=== PATIENT | male | born 1995 | race Caucasian/White ===

== ENCOUNTER 2016-11-30 16:38 | Emergency (ER) | payer OTHER ==
[~2016-11-30] VITALS: Ht 182.9 cm; Wt 84.0 kg
[2016-11-30 16:40] VITALS: BP 128/83; PULSE 95; RESP 14; TEMP 99.1; O2SAT 100
--- NOTE | 2016-11-30 17:56 | PD ---
HPI Chief Complaint: Laceration/Skin Injury Time Seen by Provider: 17:45 Travel History International Travel<30 days: No Contact w/Intl Traveler<30days: No Traveled to known affect area: No History of Present Illness HPI 21-year-old male presents to the emergency room for evaluation of laceration to his right hayward that occurred just prior to arrival. Patient was cutting down a tree with a hatchet when he missed and struck his right leg. Patient states it tonight and cut his pants. He applied pressure and came to the emergency room. Denies chronic medical conditions or daily medications. Unknown last tetanus vaccination. [facility] Past Medical History Medical History: Denies Significant Hx Tetanus Vaccination: > 5 Years Influenza Vaccination: Yes Past Surgical History Surgical History: No Previous Surgery Social History Alcohol Use: Yes (Occ.) Tobacco Use: No Substance Use: No Allergies-Medications (Allergen,Severity, Reaction): Coded Allergies: No Known Allergies (Unverified , 11/30/16) Reported Meds & Prescriptions Reported Meds & Active Scripts Active No Active Prescriptions or Reported Medications Review of Systems Except as stated in HPI: all other systems reviewed are Neg Physical Exam Narrative GENERAL: Well-nourished, well-developed male in no acute distress. Afebrile. Ambulatory. SKIN: Focused skin assessment warm/dry. There is a 2 cm deep, well approximated laceration to the right lower anterior hayward. There is no neurovascular injury or foreign body appreciated. HEAD: Normocephalic. EYES: No scleral icterus. No injection or drainage. NECK: Supple, trachea midline. No JVD or lymphadenopathy. CARDIOVASCULAR: Regular rate and rhythm without murmurs, gallops, or rubs. RESPIRATORY: Breath sounds equal bilaterally. No accessory muscle use. EXTREMITY: Right lower extremity tender to palpation over the laceration. 2+ dorsalis pedis pulse. Data Data Last Documented VS Vital Signs Date Time Temp Pulse Resp B/P Pulse Ox O2 Delivery O2 Flow Rate FiO2 11/30/16 16:40 99.1 95 14 128/83 100 Orders Tetanus/Diphtheria Tox Adult (Tetanus/Di (11/30/16 18:00) MDM Medical Decision Making Medical Screen Exam Complete: Yes Emergency Medical Condition: Yes Medical Record Reviewed: Yes Differential Diagnosis Laceration, abrasion, skin tear Narrative Course 21-year-old male presents to the emergency room for evaluation of a laceration to his right lower leg that occurred just prior to arrival. Patient cut himself hatchet accidentally. Right lower extremity is neurovascularly intact. Physical exam reveals a 27D laceration that is well approximated. No tendon, bony, or neurovascular injury noted. No foreign body. Laceration was thoroughly cleansed and then repaired, see procedure for details. Patient discharged with wound care directions and told to follow-up the primary care physician or return for worsening symptoms. He understands and agrees to plan. Procedures Procedure Narrative LACERATION LOCATION: Right anterior, distal hayward LENGTH: 2 cm NUMBER OF STITCHES/PEDRO: 3 pedro REPAIR: The area of the laceration was prepped with Betadine. Patient opted to proceed without lidocaine. The wound was copiously irrigated and explored without evidence of foreign body, tendon injury or neurovascular injury. The wound was closed using staple gun. This was a single layer repair. A sterile dressing was applied. The patient was advised to keep the dressing clean and dry. Patient tolerated the procedure well. Diagnosis Primary Impression: Laceration of right lower leg Qualified Code: S81.811A - Laceration of right lower leg, initial encounter Referrals: Primary Care Physician Patient Instructions: General Instructions, Laceration (ED) Additional Instructions: Rest and drink plenty of fluids. Keep wound clean and dry. Apply triple antibiotic ointment twice daily. Pedro out in 10-14 days. Take ibuprofen with food as directed, as needed for pain. Apply ice to the affected area for 20 minutes at a time, as needed for pain and swelling. Follow-up with a primary care physician. Return to the emergency room for worsening symptoms. Med/Other Pt SpecificInfo: Prescription(s) given Scripts No Active Prescriptions or Reported Meds Disposition: 01 DISCHARGE HOME Condition: Stable Stephanie Patino Nov 30, 2016 17:56
[2016-11-30] MEDS ORDERED: TETANUS/DIPHTHERIA TOXOID ADULT 0.5 ML VIAL IM ONE (18:00)
== END 2016-11-30 18:21 | disposition home or self-care (01) ==
LOC: PHEFT 16:38
DX: S81.811A Laceration without foreign body, right lower leg, initial encounter (principal); Z23 Encounter for immunization; W27.0XXA Contact with workbench tool, initial encounter; Y93.9 Activity, unspecified; Y92.9 Unspecified place or not applicable; Y99.9 Unspecified external cause status
CPT/HCPCS: 12001; 90471; 90714

== ENCOUNTER 2016-12-14 12:20 | Emergency (ER) | payer OTHER ==
[~2016-12-14] VITALS: Ht 182.9 cm; Wt 86.0 kg
[2016-12-14 12:26] VITALS: BP 125/70; PULSE 81; RESP 16; TEMP 98.4; O2SAT 96
--- NOTE | 2016-12-14 12:31 | PD ---
HPI . Staple removal Chief Complaint: Wound/Suture/Staple Re-Check Time Seen by Provider: 12:30 Travel History International Travel<30 days: No Contact w/Intl Traveler<30days: No Traveled to known affect area: No History of Present Illness HPI 21-year-old male who had a right hayward laceration and repaired with pedro here for removal. He has no complaints. [facility] Social History Alcohol Use: Yes (Occ.) Tobacco Use: No Substance Use: No Allergies-Medications (Allergen,Severity, Reaction): Coded Allergies: No Known Allergies (Unverified , 12/14/16) Reported Meds & Prescriptions Reported Meds & Active Scripts Active No Active Prescriptions or Reported Medications Review of Systems General / Constitutional: No: Fever Eyes: No: Visual changes HENT: No: Headaches Cardiovascular: No: Chest Pain or Discomfort Respiratory: No: Shortness of Breath Gastrointestinal: No: Abdominal Pain Genitourinary: No: Dysuria Musculoskeletal: No: Pain Skin: Positive Other (right hayward pedro ), No Rash Neurologic: No: Weakness Psychiatric: No: Depression Endocrine: No: Polydipsia Hematologic/Lymphatic: No: Easy Bruising Physical Exam Narrative GENERAL: AAO x 3, no acute distress, Well-nourished, well-developed patient. SKIN: Warm and dry. No visible rashes or bruising. Right distal hayward with [address] No evidence of cellulitis or wound has since. Healed well. HEAD: Normocephalic and atraumatic. EYES: No scleral icterus. No injection or drainage. ENT: No nasal drainage noted. Mucous membranes pink. Airway patent. NECK: Supple, trachea midline. No JVD. CARDIOVASCULAR: Regular rate and rhythm without murmurs, gallops, or rubs. RESPIRATORY: Breath sounds equal bilaterally. No accessory muscle use. No rhonchi or rales. GASTROINTESTINAL: Visual inspection normal EXTREMITIES: No cyanosis or edema. BACK: Nontender without obvious deformity. No CVA tenderness. 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 Data Data Last Documented VS Vital Signs Date Time Temp Pulse Resp B/P Pulse Ox O2 Delivery O2 Flow Rate FiO2 12/14/16 12:26 98.4 81 16 125/70 96 MDM Medical Decision Making Medical Screen Exam Complete: Yes Emergency Medical Condition: Yes Medical Record Reviewed: Yes Differential Diagnosis staple removal, wound dehiscence, less likely cellulitis Narrative Course 21-year-old male here for removal of pedro his right hayward. There are [address] Area has healed well. He has no complaints. Patient gave verbal consent to removal of pedro. 3 pedro were removed without incident. Patient thanked me for his care. Procedures Procedure Narrative Staple removal Right hayward 3 pedro removed without incident. Area clean. No evidence of cellulitis or wound dehiscence. Diagnosis Primary Impression: Removal of pedro Patient Instructions: General Instructions Additional Instructions: Return to the emergency department for any worsening of your condition. Med/Other Pt SpecificInfo: No Change to Meds Scripts No Active Prescriptions or Reported Meds Disposition: 01 DISCHARGE HOME Condition: Stable Christal Llanos Dec 14, 2016 12:30
== END 2016-12-14 12:43 | disposition home or self-care (01) ==
LOC: PHEFT 12:20
DX: S81.811D Laceration without foreign body, right lower leg, subsequent encounter (principal); X58.XXXD Exposure to other specified factors, subsequent encounter; Z48.02 Encounter for removal of sutures
CPT/HCPCS: 99281